=== PATIENT | female | born 1945 | race Caucasian/White ===

== ENCOUNTER 2017-03-29 12:52 | Inpatient (IN) | payer OTHER ==
[~2017-03-29] VITALS: Ht 147.3 cm; Wt 504.9 kg
--- NOTE | 2017-03-29 13:00 | NUR ---
TERRIE FROM [facility] AND INPATIENT ADMISSION FOR MED ADJUSTMENTS. PT WEANED HERSELF OFF XANAX WITHOUT PHYSICIAN ASSISTANCE, LAST DOSE LAST WEEK. PT REPORTS TAKING XANAX FOR SEVERE ANXIETY FOR YEARS. AT CARE, STAFF WAS CONCERNED ABOUT SEVERE SHAKING AND TREMULOUS ACTIVITY AND ACTIVATED EMS. ARRIVES ANXIOUS, PLEASANT AND MOTIVATED FOR CARE. PT WAS EXPLAINED COURSE OF TREATMENT AND MEDICAL CLEARANCE FOR CRISIS ASSESSMENT AND EVAL FOR ADMISSION TO INPATIENT PSYCH. DENIES SI/HI AND DENIES AH/VH. DENIES ETOH/DRUG USE. HX HYPOTHYROID, SOCORRO, DEPRESSION. ENDORSES ANHEDONIA AND MANY PSYCHOSOCIAL STRESSORS. CONTRACTS FOR SAFETY IN HOSPITAL. OFFERS NO PHYSICAL COMPLAINTS AND REPORTS IMPROVEMENT IN ANXIETY AND SHAKINESS AFTER SPEAKING WITH THIS RN.
--- NOTE | 2017-03-29 13:29 | NUR ---
LABS DRAWN AND SENT BY THIS [facility] BLUE, SST, LAV, PINK, RICHARD
[2017-03-29 13:33] LABS: ABSOLUTE BASOPHIL COUNT 0 /CUMM (0.0-0.2); ABSOLUTE EOSINOPHIL COUNT 0 /CUMM (0.0-0.7); ABSOLUTE GRANULOCYTE CT 6.7 /CUMM (1.4-6.5); ABSOLUTE LYMPH COUNT 1.9 /CUMM (1.2-3.4); ABSOLUTE MONOCYTE COUNT 0.6 /CUMM (0.10-0.60); BASOPHIL % 0.4 % (0.0-2.0); EOSINOPHIL % 0.2 % (0-5); HEMATOCRIT 46.4 % (37-47); MEAN CORPUSCULAR HGB 32.3 PG (27.0-31.0); MEAN CORPUSCULAR VOLUME 98.1 FL (81.0-99.0); MEAN PLATELET VOLUME 7.7 FL (7.4-10.4); PLATELET COUNT 145 /CUMM (130-400); RBC DISTRIBUTION WIDTH 12.9 % (11.5-14.5); RED BLOOD CELL CT 4.73 /CUMM (4.20-5.40); WHITE BLOOD CELL COUNT 9.3 /CUMM (4.8-10.8)
--- NOTE | 2017-03-29 13:50 | NUR ---
TWO BELONGINGS BAGS TO CLOSET, ONE VALUABLES TO SAFE, AND ONE BAG TO PHARMACY. INFORMED WAITING PERFORMED
--- NOTE | 2017-03-29 14:24 | ED PSYCHIATRIC COMPLAINT ---
History of Present Illness General Chief Complaint: General Adult Stated Complaint: BIBA Source: patient Exam Limitations: no limitations Vital Signs & Intake/Output Vital Signs & Intake/Output Vital Signs Date Time Temp Pulse Resp B/P B/P Pulse O2 O2 Flow FiO2 Mean Ox Delivery Rate 04/02 0749 96.2 92 136/87 04/01 2009 99.2 82 16 101/61 04/01 2004 99.2 82 101/61 04/01 1618 77 105/64 04/01 1615 77 105/64 04/01 1224 92 129/76 04/01 1221 92 129/76 Allergies Coded Allergies: citalopram (From CELEXA) (UNKNOWN PER PT 03/29/17) fluvoxamine (From LUVOX) (UNKNOWN PER PT 03/29/17) sertraline (From ZOLOFT) (UNKNOWN PER PT 03/29/17) Triage Note: BIBA FROM [facility] AND INPATIENT ADMISSION FOR MED ADJUSTMENTS. PT WEANED HERSELF OFF XANAX WITHOUT PHYSICIAN ASSISTANCE, LAST DOSE LAST WEEK. PT REPORTS TAKING XANAX FOR SEVERE ANXIETY FOR YEARS. AT [facility], STAFF WAS CONCERNED ABOUT SEVERE SHAKING AND TREMULOUS ACTIVITY AND ACTIVATED EMS. ARRIVES ANXIOUS, PLEASANT AND MOTIVATED FOR CARE. PT WAS EXPLAINED COURSE OF TREATMENT AND MEDICAL CLEARANCE FOR CRISIS ASSESSMENT AND EVAL FOR ADMISSION TO INPATIENT PSYCH. DENIES SI/HI AND DENIES AH/VH. DENIES ETOH/DRUG USE. HX HYPOTHYROID, SOCORRO, DEPRESSION. ENDORSES ANHEDONIA AND MANY PSYCHOSOCIAL STRESSORS. CONTRACTS FOR SAFETY IN HOSPITAL. OFFERS NO PHYSICAL COMPLAINTS AND REPORTS IMPROVEMENT IN ANXIETY AND SHAKINESS AFTER SPEAKING WITH THIS RN. Triage Nurses Notes Reviewed? yes Onset: Gradual Duration: worse persistent since (2 weeks) Timing: recent history Severity: moderate Severity Numbers: 8 Associated Symptoms: anxiety, impaired concentration HPI: Patient is a 71-year-old female presenting to the emergency department with chief complaint of increasing depression, anxiety worsening over the past couple weeks. History of being medicated with mood stabilizers, not currently on an antidepressant. She was told to come in by [facility] for evaluation because she recently titrated herself off of Xanax. Since then she's had increasing and feelings of anxiety and depression. She also reports worsening of her central tremor which she has had for the past 20 years. Denies any nausea or vomiting. No palpitations. Denies weakness. Denies any suicidal or homicidal ideation. (DENA WALKER) Reconcile Medications Diphenhydramine HCl 50 MG CAPSULE 1 CAP PO AD UNKNOWN (Reported) Divalproex Sodium (Divalproex Sodium ER) 250 MG TAB.ER.24H 1 TAB PO QPM MOOD STABILIZER (Reported) Divalproex Sodium 500 MG TABLET.DR 1 TAB PO QPM MOOD STABILIZER (Reported) Levothyroxine Sodium 50 MCG TABLET 1 TAB PO DAILY THYROID (Reported) Multivitamin (Multi-Day Vitamins) 1 EACH TABLET 1 TAB PO DAILY SUPPLEMENT ( Reported) [place]-3 Fatty Acids ([place]-3) (Unknown Strength) CAPSULE 2 CAP PO DAILY SUPPLEMENT (Reported) Quetiapine Fumarate 25 MG TABLET 2 TAB PO QHS MENTAL HEALTH (Reported) Topiramate 50 MG TABLET 1 TAB PO QHS MOOD (Reported) (NOHELIA LAST,DEANDRE Kam) Past History Travel History Traveled to [place] past 21 day No Medical History Any Pertinent Medical History? see below for history Neurological: NONE EENT: NONE Cardiovascular: NONE Respiratory: NONE Gastrointestinal: NONE Hepatic: NONE Renal: NONE Musculoskeletal: NONE Psychiatric: anxiety, depression Endocrine: hypothyroidism Blood Disorders: NONE Cancer(s): NONE Surgical History Surgical History: non-contributory Psychosocial History What is your primary language Danish Tobacco Use: Never used Family History Hx Contributory? No (DENA WALKER) Review of Systems Review of Systems Constitutional: Reports: no symptoms. Comments Review of systems: See HPI, All other systems negative. Constitutional, no chills fever or weight loss HEENT: No visual changes no sore throat no congestion Cardiovascular: No chest pain ,palpitation , orthopnea or ankle swelling Skin, no jaundice no rashes Respiratory: No dyspnea cough sputum or hemoptysis GI: No nausea no vomiting : No dysuria No hematuria Muscle skeletal: no back pain, no neck pain, Neurologic: No numbness no confusion Psych: Positive anxiety and depression Heme/endocrine: No bruising no bleeding no polyuria or polydipsia Immunology: No splenectomy or history of AIDS (DENA WALKER) Physical Exam Physical Exam General Appearance: well developed/nourished, no apparent distress, alert, awake , comfortable Neurological/Psychiatric: anxious Comments: Well-developed well-nourished person in no acute distress HEENT: Normal EENT exam, extraocular motion intact, no nystagmus. Pupils equally round and reactive to light and accommodation. Nose is atraumatic. External auditory canal and Tympanic membranes clear. Pharynx normal. No swelling or edema. Neck: Normal inspection Back: Nontender Cardiovascular: Regular rate and rhythms no murmurs rubs or gallops, normal JVP Respiratory: Chest nontender. No respiratory distress.breath sounds clear to auscultation bilaterally Extremity: No edema Neuro: Alert oriented x3, essential tremor present in face and left hand Skin: No appreciable rash on exposed skin, skin is warm and dry. Psych: Anxious memory and judgment is normal. SAD PERSONS Done? patient not suicidal (DENA WALKER) Progress Differential Diagnosis: medication withdrawal, medication side effect, depressive disorder, generalized anxiety disorder Plan of Care: Current Medications Sig/Prasanth Start time Last Medication Dose Stop Time Status Admin Quetiapine Fumarate 25 MG Q4H PRN 04/01 2315 AC (Seroquel) Lorazepam 0.5 MG 0800,1400,04/01 0800 AC 04/01 (Ativan) 04/08 0759 1949 Divalproex Sodium 750 MG 03/31 AC 04/01 (Depakote ER) 1949 Lorazepam 0.5 MG Q4H PRN 03/31 1130 AC 03/31 (Ativan) 04/07 1129 1812 Lorazepam 1 MG Q4H PRN 03/31 1130 AC (Ativan) Quetiapine Fumarate 50 MG AT BEDTIME 03/30 2200 AC 04/01 (SEROquel) 2145 Topiramate 50 MG AT BEDTIME 03/30 2200 AC 04/01 (Topamax) 2145 Glycerin 2 SPRAY Q2P PRN 03/30 1015 AC 04/01 ([facility] [address] [place]) Multivitamins 1 TAB DAILY 03/30 1000 AC 04/01 Therapeutic 1126 (Theragran-M Vitamins Tabs) Levothyroxine Sodium 0.05 MG DAILY AC 03/30 0700 AC 04/01 (Synthroid) 1126 Microbiology 04/01 1336 URINE ROUT: Urine Culture - RECD Hand-Off Endorsed To: DEANDRE POZO MD Endorsed Time: 1999 Pending: consult Comments: Patient will be signed out to Dr. Pozo pending consultation with psychiatry. (DENA WALKER) Departure Departure Disposition: STILL A PATIENT Condition: Stable Referrals: UNKNOWN (PCP/Family) Departure Forms: Customer Survey General Discharge Information (DENA WALKER) Departure Clinical Impression Primary Impression: Major depressive disorder, recurrent, unspecified Psych Admission Note Psychiatric Admission: I have seen and evaluated HUSSEIN MA. I have also reviewed all the pertinent lab results and diagnostic results. HUSSEIN MA will be admitted to our inpatient Psychiatric unit for treatment and care. PA/PROGRAM RESEARCH SPECIALIST Co-Sign Statement Statement: ED Attending supervision documentation- [X] I saw and evaluated the patient. I have also reviewed all the pertinent lab results and diagnostic results. I agree with the findings and the plan of care as documented in the PA's/PROGRAM RESEARCH SPECIALIST's documentation. [X] I have reviewed the ED Record and agree with the PA's/PROGRAM RESEARCH SPECIALIST's documentation. [] Additions or exceptions (if any) to the PAs/PROGRAM RESEARCH SPECIALIST's note and plan are summarized below: [] (NOHELIA LAST,DEANDRE Kam) Departure Clinical Impression Primary Impression: Major depressive disorder, recurrent, unspecified Psych Admission Note Psychiatric Admission: I have seen and evaluated HUSSEIN MA. I have also reviewed all the pertinent lab results and diagnostic results. HUSSEIN MA will be admitted to our inpatient Psychiatric unit for treatment and care. PA/PROGRAM RESEARCH SPECIALIST Co-Sign Statement Statement: ED Attending supervision documentation- [X] I saw and evaluated the patient. I have also reviewed all the pertinent lab results and diagnostic results. I agree with the findings and the plan of care as documented in the PA's/PROGRAM RESEARCH SPECIALIST's documentation. [X] I have reviewed the ED Record and agree with the PA's/PROGRAM RESEARCH SPECIALIST's documentation. [] Additions or exceptions (if any) to the PAs/PROGRAM RESEARCH SPECIALIST's note and plan are summarized below: [] (NOHELIA LAST,DEANDRE Kam)
--- NOTE | 2017-03-29 14:31 | NUR ---
PRABHAKAR HURST AT BEDSIDE FOR EVAL
--- NOTE | 2017-03-29 14:35 | NUR ---
PCP BLADIMIR HENLEY APRN AT [facility] CONTACT [phone]
--- NOTE | 2017-03-29 14:40 | NUR ---
FOOD TRAY ORDERED
--- NOTE | 2017-03-29 15:04 | NUR ---
RECEIVE REPORT FROM ROHAN ALARCON
[2017-03-29] MEDS ORDERED: LEVOTHYROXINE50 MCG PO (15:42)
[2017-03-29] MEDS ORDERED: QUETIAPINE FUMA25 M1 PO (15:42)
[2017-03-29] MEDS ORDERED: DIVALPROEX SOD250 M3 PO (15:42)
[2017-03-29] MEDS ORDERED: TOPIRAMATE50 M1 PO (15:43)
[2017-03-29] MEDS ORDERED: DIVALPROEX SOD500 M2 PO (15:43)
[2017-03-29] MEDS ORDERED: ALPRAZOLAM2 M2 PO (15:44)
[2017-03-29] MEDS ORDERED: DIPHENHYDRAMINE50 M1 PO (15:44)
[2017-03-29] MEDS ORDERED: MULTI-DAY VITA1 EACH PO (15:51)
[2017-03-29] MEDS ORDERED: SUPER B-50 COM1 EACH PO (15:51)
[2017-03-29] MEDS ORDERED: CALCIUM-MAGNES1 EAC5 PO (15:52)
--- NOTE | 2017-03-29 15:52 | ED PSY CRISIS COLLATERAL NOTE ---
Collateral Note Collateral Note Family/Inform/Davis Contacts: Per Cady Alonzo's email: "I am meeting with Vicky Galvez as part of an OPS medication evaluation. Briefly , she is a 71 year old female with Bipolar Disorder living alone in an independent retirement community. She reports worsened anxiety and depressive symptoms affecting her ability to care for herself and feel safe. She had also recently self-tapered off Xanax 2mg. Reports passive suicidal ideation, denies intent or plan. She has been psychiatrically on four prior occasions (last hospitalization in 2009). I am recommending that she be evaluated at Crisis for possible inpatient psychiatric hospitalization. Cady Alonzo APRN, PMHNP-[facility], [place] [phone]"
[2017-03-29] MEDS ORDERED: OMEGA-31000 M1 PO (15:53)
--- NOTE | 2017-03-29 15:59 | NUR ---
AMBULATES IN [place] W/ ASSIST. REMAINS A/O. PLEASANT AND COOPERATIVE.
--- NOTE | 2017-03-29 16:05 | ED PSY CRISIS COLLATERAL NOTE ---
Collateral Note Collateral Note Family/Inform/Davis Contacts: Cady Alonzo VISION IMPAIRED TEACHER: Cady called crisis to give pt information being sent to ED by ambulance. Pt is 71 yo female with hx of bipolar d/o who came in(OPS) for medication evaluation. She presents with increase in anxiety, visible tremor of hands, and endorses passive SI. Pt decided to taper herself off of xanax. She has hx of MH since early 1970's and has had multiple medication trials. No hx of suicide attempts. Pt is noted to have decrease in neuro-veg symptoms ie eating, motivation, interests. Pt is seeking voluntary inpatient admission for mood stabilization, safety and stable medication regime. Pt has hx of 4 hospitalizations inpatient hospitalizations between [id number] Inpatient - [facility] in 2009 Inpatient - [facility] in 2005 Inpatient - [facility] in 2000 Inpatient - [facility] in 2000, for nervous break down Outpatient - Dr. All Brunner, psychologist, [place] - currently working with Dates: Since 1997 to present, (phone [phone], fax [phone]) Outpatient - Amrita Patel APRN, prescriber. Recently stopped going and PCP took over prescriptions. Outpatient: IOP at [place] in 2002 Outpatient - Dr. Brady Porras, prior psychiatrist. Current Psychiatric Medications: quetiapine 50mg bedtime depakote ER 750mg daily bedtime topamax 50mg daily bedtime Other Medications: levothyroxine 0.05mg daily AM, benadryl 100mg bedtime (took 1st dose last night),
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
--- NOTE | 2017-03-30 04:04 | NUR ---
AWAKE SEVERAL TIMES DURING THE SHIFT BENADRYL GIVEN . THEN WANTING PRUNE JUICE ADMINISTERED WITH GOOD RELIEF.
[2017-03-30 07:52] VITALS: BP 112/63
--- NOTE | 2017-03-30 11:22 | SOCIAL WORKER PROG NOTE PSYCH ---
Social Work Progress Note Progress Note Recieved call from [facility] Clemente Sims - she stated she needed more clinical regarding patient to authorize admission. Provided clinical and AUTH [id number] (03/29/17-), next review on 04/04/17. She stated she'd like to know about her psychiatric admissions from the past, reason for admissions. Also, family meeting, and collateral regarding Xanex and how much was she taking.
[2017-03-30 12:21] VITALS: BP 114/59
--- NOTE | 2017-03-30 13:25 | SOCIAL WORKER PROG NOTE PSYCH ---
Social Work Progress Note Progress Note 11:30am: Vasu met with patient. Pt presented as depressed, tearful and anxious. She reported having SI without plan and expressed not wanting to live. "My Yarsanism is my protective factor against suicide." Pt reported having limited supports and discussed past services/supports she utilized such as [facility] in [place]. Pt was encouraged to utilize the staff/nursing at [facility] for support as needed. She agreed to inform staff should safety concerns or other concerns arise. Pt stated that she would be interested in meeting with the hospital meter reader. Sw followed up with nursing staff who had submitted a request.
--- NOTE | 2017-03-30 14:20 | NUR ---
PT HAS BEEN VISIBLE IN THE [place]IE[place] MOST OF THE DAY. HER GOAL WAS TO TRY AND BE POSITIVE. PT HAS BEEN MOST GROUPS TODAY, AND HAS BEEN INTERACTING WITH PEERS. SHE IS HYPERVERBAL AT TIMES, AND FEELING ANXIOUS BUT WAS COMFORTED BY CHARGE NURSE. PT SEEMS TO BE MAKING SOME ADJUSTMENTS IN THE MILIEU. WHEN ASKED PT DENIES THOUGHTS TO HURT HERSELF BUT SEES HERSELF GOING IN THREE DAYS. SHE DID SAY THAT SHE WILL NOT HURT HERSELF, AND WILL REMAIN SAFE.
[2017-03-30 15:48] VITALS: BP 114/66
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
--- NOTE | 2017-03-30 18:08 | NUR ---
PT IS COOPERATIVE WITH STAFF AND PEERS, AND COMPLIANT WITH UNIT RULES. OFTEN IN MILIEU, INTERACTING WELL WITH OTHERS. PT CAN APPEAR LABILE AND TEARFUL AT TIMES. MOOD IS STABLE, AFFECT APPEARS EUTHYMIC TO FULL RANGE, COMMUNICATION IS ORGANIZED, BUT CAN BE HYPERVERBAL AT TIMES, OTHER THAN THAT IS NORMAL IN ALL RESPECTS, AND APPETITE IS NORMAL. PT DENIES SI AT THIS TIME.
--- NOTE | 2017-03-30 19:20 | History & Physical ---
General Information and HPI MD Statement: I have seen and personally examined HUSSEIN MA and documented this H&P. The patient is a 71 year old F who presented with a patient stated chief complaint of "Severe and worsening depression and possible taper off Xanax wrong "]. Source of Information: patient Exam Limitations: no limitations History of Present Illness: 71 year old female BIBA from clinic for tremors and inpatient admission for medication adjustment. Patient weaned herself off Xanax without physician assistance,last dose last week she was taking the medication for severe anxiety for years. Also depressed crying "There is nothing worth living for".Not happy living at senior housing. for all this reasons admitted. Allergies/Medications Allergies: Coded Allergies: citalopram (From CELEXA) (UNKNOWN PER PT 03/29/17) fluvoxamine (From LUVOX) (UNKNOWN PER PT 03/29/17) sertraline (From ZOLOFT) (UNKNOWN PER PT 03/29/17) Home Med list Diphenhydramine HCl 50 MG CAPSULE 1 CAP PO AD UNKNOWN (Reported) Divalproex Sodium (Divalproex Sodium ER) 250 MG TAB.ER.24H 1 TAB PO QPM MOOD STABILIZER (Reported) Divalproex Sodium 500 MG TABLET.DR 1 TAB PO QPM MOOD STABILIZER (Reported) Levothyroxine Sodium 50 MCG TABLET 1 TAB PO DAILY THYROID (Reported) Multivitamin (Multi-Day Vitamins) 1 EACH TABLET 1 TAB PO DAILY SUPPLEMENT ( Reported) [place]-3 Fatty Acids ([place]-3) (Unknown Strength) CAPSULE 2 CAP PO DAILY SUPPLEMENT (Reported) Quetiapine Fumarate 25 MG TABLET 2 TAB PO QHS MENTAL HEALTH (Reported) Topiramate 50 MG TABLET 1 TAB PO QHS MOOD (Reported) Compliance With Home Meds: UNKNOWN Past History Travel History Traveled to [place] past 21 day No Medical History Neurological: NONE EENT: NONE Cardiovascular: NONE Respiratory: NONE Gastrointestinal: NONE Hepatic: NONE Renal: NONE Musculoskeletal: NONE Psychiatric: anxiety, depression Endocrine: hypothyroidism Blood Disorders: NONE Cancer(s): NONE Isolation History: Standard Surgical History Surgical History: non-contributory Past Family/Social History Employment History Employment Employed Profession/Employer Homemaker and cleaning Review of Systems Review of Systems Constitutional: Reports: see HPI. Exam & Diagnostic Data Last 24 Hrs of Vital Signs/I&O Vital Signs Date Time Temp Pulse Resp B/P B/P Pulse O2 O2 Flow FiO2 Mean Ox Delivery Rate 03/30 1548 70 114/66 03/30 1221 70 114/59 03/30 0752 98.9 68 112/63 03/29 1922 98.5 84 19 137/65 96 Room Air Intake & Output 03/30 1600 03/30 0800 03/30 0000 Intake Total Output Total Balance Patient 120 lb Weight Physical Exam General Appearance Alert, Oriented X3, Cooperative, shacky Skin No Rashes, No Breakdown HEENT PERRLA, EOMI Neck Supple, No JVD Lymphatic Axillary nl, Cervical nl Cardiovascular Regular Rate, No Murmurs Lungs Clear to Auscultation, Normal Air Movement Abdomen Soft, No Tenderness, No Hepatospenomegaly Neurological Exam Findings: Normal Tone, Sensation Intact, Cranial Nerves 3-12 NL, tremors Cranial Nerves II through XII: Intact Extremities No Edema, Normal Pulses Last 24 Hrs of Labs/Boo: Laboratory Tests 03/29/17 1327: Anion Gap 14, Estimated GFR > 60, BUN/Creatinine Ratio 22.5, Glucose 78, Calcium 9.9, Total Bilirubin 0.6, AST 46 H, ALT 37, Alkaline Phosphatase 68, Total Protein 7.3, Albumin 4.4, Globulin 2.9, Albumin/Globulin Ratio 1.5, Triglycerides 116, Cholesterol 210 H, LDL Cholesterol, Calc 125, HDL Cholesterol 62 H, Cholesterol/HDL Ratio 3, TSH 2.200, Free T4 1.32, CBC w Diff NO MAN DIFF REQ, RBC 4.73, MCV 98.1, MCH 32.3 H, RDW 12.9, MPV 7.7, Gran % 72.0 , Lymphocytes % 20.7, Monocytes % 6.7, Eosinophils % 0.2, Basophils % 0.4, Absolute Granulocytes 6.7 H, Absolute Lymphocytes 1.9, Absolute Monocytes 0.6, Absolute Eosinophils 0, Absolute Basophils 0, PUBS MCHC 33.0, Serum Alcohol < 10.0 03/29/17 1313: Urine Opiates Screen < 100.00, Methadone Screen 52, Barbiturate Screen < 60, Ur Phencyclidine Scrn < 6.00, Amphetamines Screen < 100, U Benzodiazepines Scrn 504 H, Urine Cocaine Screen < 50, Urine Cannabis Screen < 5.00, Urinalysis MOD H, Urine Color YEL, Urine Clarity HAZY H, Urine pH 6.5, Ur Specific [place] 1.025, Urine Protein TRACE H, Urine Ketones NEG, Urine Nitrite NEG, Urine Bilirubin NEG, Urine Urobilinogen 0.2, Ur Leukocyte Esterase TRACE H, Ur Microscopic SEDIMENT EXAMINED, Urine RBC 1-3, Urine WBC 1-3 H, Ur Epithelial Cells FEW, Urine Bacteria FEW H, Hyaline Casts FEW H, Urine Mucus MANY H, Urine Hemoglobin NEG, Urine Glucose NEG Assessment/Plan As Ranked By This Provider Problem List: 1. Major depressive disorder, recurrent, unspecified 2. Tremors of nervous system Miscellaneous Miscellaneous Documentation Attending Case Discussed With: NADIRA LAST,ARMIN Perkins Primary Care Physician: UNKNOWN Patient sees these Specialists psych Level of Patient Care: Bal Consults Needed: Consulting Specialty: Psychiatry Consulting Physician: Dr pabon Reason for Consult: depression anxiety,
[2017-03-30 19:55] VITALS: BP 93/53
--- NOTE | 2017-03-31 07:09 | NUR ---
PT DISORGANIZED. PT RECEIVED BENADRYL 50 PRN AT 2300 WITH MINIMAL EFFECT INITIALLY. PT TALKING LOUDLY TO HERSELF AT SEVERAL POINTS IN THE NIGHT. PT DID SLEEP BETTER AFTER 0245, BUT STILL BIZARRE AND DIFFICULT TO UNDERSTAND IN THE AM.
[2017-03-31 08:05] VITALS: BP 130/86
--- NOTE | 2017-03-31 10:41 | NUR ---
PT IS COOPERATIVE WITH STAFF AND PEERS, AND COMPLIANT WITH UNIT RULES. APPEARS HIGHLY ANXIOUS, AND HYPERACTIVE. OFTEN IN MILIEU, INTERACTING WITH OTHERS. MOOD IS STBALE, AFFECT APPEARS EUTHYMIC, ANXIOUS AT TIMES. COMMUNICATION IS ORGANIZED, BUT HYPERVERBAL AND PRESSURED. APPETITE IS NORMAL. PT DENIES SI AT THIS TIME.
[2017-03-31 12:42] VITALS: BP 126/71
--- NOTE | 2017-03-31 14:08 | CP SOUTH PROGRESS NOTE PSYCH ---
Psych (Inpt) Progress Note Progress Note Include the following elements, when applicable: Involvement in the active treatment of the patient with behavioral observations of the patient and the patient's response to the treatment. Review of the ongoing treatment process in the context of the treatment plan. Indication of how multi-disciplinary staff members are carrying out the treatment plan. Plans for future interventions and recommendations for revision of the treatment plan. Liaison with other physicians/providers. Progress Note: PSYCHIATRIST NOTE, 03/31/2017: I discussed this patient's progress thus far, current mental status, treatment and discharge planning with staff team today in the daily morning LULU and Darlin Boudreaux LCSW, our medical student, Randee TRIVEDI, and I interviewed her together in individual session. Overnight report noted difficulty sleeping without benefit from PRN Benadryl, 50mg. Patient was highly disorganized, talking loudly to herself much of the night, still bizarre and difficult to understand in AM. During our meeting today, patient's problem making herself understood continued despite what appeared to be considerable effort on her part to communicate with us and be understood, a clearly social interaction though much if not most of it obscure. She was extremely shaky, tremulous, with arms flailing about in seeming effort to reinforce and emphatize what she was trying to say/convey. Much of the time, she spoke incoherently in a manner which almost suggested some sort of aphasia but at intervals she was able to get her point across and what she was saying at those times appeared to be generally nondelusional if not completely linear and rational. Despite all her difficulties at communicating, and some lability and teariness at times, patient's affect/mood overall seemed rather expansive, not sustainedly sad or dysphoric and she frequently smiled and appeared enthusiastic; though obviously also frustrated, she did not seem dismayed or depressed over her difficulties and kept trying to be understood with effort and energy. My quess was that her current presentation is very much contributed to by her recent abrupt self- discontinuation of Xanax after many years of constant use; I went over with patient the protocol of tapering regular doses of Ativan, plus additional PRN's for significant elevations in CIWA/pulse over the next several days and that we will be monitoring and re-evaluating the process and its efficacy on a daily basis. She reported an essential tremor since "age 49" with some progression and exacerbation during times of high emotion (such as now) but denied being followed or treated by a neurologist and was eager to have a neurologic consultation during this admission. There may also be a component of Tardive Dyskinesia from years of neuroleptic treatment of her bipolar disorder which is adding to her currently observed movements. Patient characterized her "bipolar " as most often being pressured in speech/hyperactive and going on spending sprees. Patient claims to be unhappy where she lives in senior housing, "not liking to be around old people;" she does have a male neighbor Trent who she said recently proposed marriage to her but emphasized "I'm not interested in him that way; he's too old for me; I like younger men," and added to this that she did want very much to "find out what 'fun' is...what 'fun' is for me..." We have scheduled an initial inpatient serum valproic acid level for tomorrow morning.
[2017-03-31 15:36] VITALS: BP 91/57
--- NOTE | 2017-03-31 16:10 | SOCIAL WORKER PROG NOTE PSYCH ---
Social Work Progress Note Progress Note 3:55pm: Vasu left vm for Renita at [facility] with clinical, requesting additional units for inpt admission.
[2017-03-31 18:07] VITALS: BP 131/74
--- NOTE | 2017-03-31 18:08 | SOCIAL WORKER PROG NOTE PSYCH ---
Social Work Progress Note Progress Note 12:05pm: Emely Walton, medical student and this SW met with pt. She presented as tearful and disorganized, however, became more organized in thought as the session progressed. Pt discussed her decision to taper off the Xanax, however struggled with the side effects/withdrawal sx of doing so. She was in agreement in following orders regarding this taper. Regarding medical, pt reported that her tremors began at age 49 and worsen with agitation and excitement. Furthermore, they impact her speech. She denied ever seeing a neurologist and was eager to do so. Pt discussed her experience with Bipolar disorder and discussed hypomanic episodes as related to "over spending and over talking." Pt stated that while she does not enjoy living in a fpc environment, she did identify a friend/support that she has there. Pt identified [facility] primary [facility] as tapering off the BZD and "I have to learn more about what fun is for me."
[2017-03-31 20:11] VITALS: BP 99/65
[2017-03-31 20:15] VITALS: BP 99/65
--- NOTE | 2017-03-31 20:50 | NUR ---
PT IS VISIBLE ON UNIT, PRESENTING DISORGANIZED AND DISORIENTED. PT IS SEEN WANDERING AROUND UNIT, GOING BEHIND NURSE'S STATION AND INTO OTHER PATIENT'S ROOM. PT RESISTS REDIRECTION BUT TYPICALLY WILL COMPLY. PT IS TANGENTIAL, HYPERVERBAL AND NONSENSICAL. AT TIMES PT IS TEARFUL BUT HAS A DIFFICULT TIME EXPRESSING WHAT IS WRONG AND EXPESSES FRUSTRATION WHEN STAFF CANNOT UNDERSTAND. NO SI REPORTED. PT HAS AN ANXIOUS MOOD AND LABILE AFFECT.
--- NOTE | 2017-03-31 21:47 | NUR ---
MOVED PT. TO B1 TO BE CLOSER TO NURSES STATION PT. WANDERING INTO OTHER ROOMS VERY RESTLESS. 2030 RECEIVED CALL FROM PT'S. PSYCHIATRIST PT. HAD CALLED HIM HE WAS QUITE CONCERNED OF HER CONFUSION " I HAVE TAKEN CARE OF HER FOR 10YRS. THIS IS NOT HER NORMAL BEHAVIOR " GAVE THIS NURSE HIS CELL NUMBER TO BE NOTIFIED FOR ANYTHING CONCERNING HER CARE. GAVE NUMBER TO DR. WADDELL AND MADE AWARE OF HER CONFUSION. [id number] WANG OF TEMP 99.2 CONFUSION ORDERED URINE CULTURE AND 1:1 SITTER. PT IS REDIRECTABLE LABS ARE ORDERED FOR AM. ALSO HAS NOT SLEPT THE LAST [address] WANG WOULD LIKE US TO TRY TO STAY AWAY FROM MEDICATING WITH ATIVAN IF POSSIBLE.
--- NOTE | 2017-03-31 23:48 | NUR ---
[address] WANG NOTIFIED ORDERED TRAZADONE 50MG PO IF INEEFECTIVE GIVE ZYPREXA.
--- NOTE | 2017-04-01 00:56 | NUR ---
12AM PT. SLEEPING SOUNDLY.
[2017-04-01 12:21] VITALS: BP 129/76
[2017-04-01 12:24] VITALS: BP 129/76
--- NOTE | 2017-04-01 13:10 | NUR ---
PT HAS BEEN IN HER ROOM ASLEEP FOR MOST OF THE MORNING AND EARLY AFTERNOON. RECIEVED A PRN AND NURSE REQUESTED VITALS FOR PT. PT WAS THEN GIVEN THE OPTION TO COME OUT INTO THE COMMUNITY TO HAVE HER VITALS TAKEN OR TO STAY IN BED. SHE CHOSE TO COME OUT INTO THE [facility] AND DISPLAYED DISORGANIZED SPEECH, ANXIETY, HIGH PULSE AND TREMORS. PEERS BEGAN TO SOCIALIZE WITH HER AND SHE APPEARED DISTRACTED FROM EXPRESSING DISTRESS. WHEN ASKED PT HAS DENIED ANY THOUGHTS OF SI AND WILL INFORM STAFF IF THOUGHTS/FEELINGS CHANGE.
--- NOTE | 2017-04-01 15:49 | SOCIAL WORKER PROG NOTE PSYCH ---
Social Work Progress Note Progress Note Lemgthy conversation with Cheyenne ("you can call me Cheyenne"), and she provided background information, as well as her standard for this admission to be a complete success would be for her to get involved in more activities; and for her to get a different living situation, even if it is is essentially in the same neighborhood. Patient provided rich information
[2017-04-01 16:15] VITALS: BP 105/64
[2017-04-01 16:18] VITALS: BP 105/64
--- NOTE | 2017-04-01 18:06 | NUR ---
PT IS CALM, COOPERATIVE WITH STAFF AND PEERS, AND COMPLIANT WITH UNIT RULES. BOTH IN AND OUT OF MILIEU, INTERACTING WITH OTHERS TO AN EXTENT. APPEARS CONFUSED AT TIMES. PACING THE UNIT WHILE IN MILIEU ON OCCASSION. MOOD IS STABLE, AFFECT APPEARS EUTHYMIC, COMMUNICATION IS ORGANIZED TO AN EXTENT, SLIGHTLY HYPERVERBAL, AND APPETITE IS NORMAL. PT DENIES SI AT THIS TIME.
--- NOTE | 2017-04-01 18:18 | SOCIAL WORKER PROG NOTE PSYCH ---
Social Work Progress Note Progress Note Authorization for continued inpt treatment: Auth number: [id number] 04/01-04/06/17 review on 04/06/17 with Renita [phone]
--- NOTE | 2017-04-01 18:58 | CP SOUTH PROGRESS NOTE PSYCH ---
Psych (Inpt) Progress Note Progress Note Include the following elements, when applicable: Involvement in the active treatment of the patient with behavioral observations of the patient and the patient's response to the treatment. Review of the ongoing treatment process in the context of the treatment plan. Indication of how multi-disciplinary staff members are carrying out the treatment plan. Plans for future interventions and recommendations for revision of the treatment plan. Liaison with other physicians/providers. Progress Note: PSYCHIATRIST NOTE, 04/01/2017: I discussed this patient's progress to date, current mental status, treatment and discharge planning with staff team today in the daily morning ITTM and our medical student, Randee TRIVEDI, and I met with patient together in individual session. I had spoken earlier in the day with patient's longtime treating outpatient psychologist, Dr. 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 He is completely willing to have paient return to see him following stabilization. She will likely continue to see Cady Alonzo APRN, for medication management; though patient has only seen Ms. Alonzo once she has established a very strong positive transference to her (as she has for many years with Dr. Brunner). Patient was much less tremulous today, without arm flailing or much articulation difficulty and with a mental clarity asoundingly improved over our interview with her only 24 hours ago; it is like she is not the same person only she was able to better explain some of what she'd tried to convey to us yesterday. She was incisive, insightful, witty (appropriately if mildly elatedly so), obviously intelligent and educated. It is hard to describe the contrast between her previous aphasia-like, stuttering, disorganized (to the point of seeming looseness) presentation the day before. Could this be in large part due to restarting a low dose of benzodiazepine during the interval, have been generated by acute Xanax withdrawal after so many years? I will be slow to further taper current dose of Ativan, 0.5mg 3x/day, planning to continue this dose until at least 04/04/2017 before continuing taper; patient received one PRN dose of Ativan, 0.5mg last evening for elevation in CIWA score. I have discontinued PRN trazodone given possible rapid cycling bipolar disorder; in addition to Seroquel, 50mg HS, I will add 25mg PRN doses up to an additional 100mg/day maximum. Serum valproic acid level this morning was optimal at 81.5mcg/ml and Depakote continues to be well-tolerated at a dose of 750mg/day; this mood stabilizer may also be helping with the improved clinical picture; though patient continues to be a little giddy, she is clearly not hypomanic at this time. If additional mood stabilization is required despite the low dose Seroquel, a trial of Tegretol might be considered. We will stay away from primary anti-depressants; patient is not currently depressed in any event.
[2017-04-01 20:04] VITALS: BP 101/61
[2017-04-01 20:09] VITALS: BP 101/61
[2017-04-02] VITALS (7 sets, daily range): BP systolic 81–136; BP diastolic 49–87
--- NOTE | 2017-04-02 04:49 | NUR ---
PT SLEPT. LESS MANIC, LESS THOUGHT-DISORDERED.
--- NOTE | 2017-04-02 09:36 | CP SOUTH PROGRESS NOTE PSYCH ---
Psych (Inpt) Progress Note Progress Note Include the following elements, when applicable: Involvement in the active treatment of the patient with behavioral observations of the patient and the patient's response to the treatment. Review of the ongoing treatment process in the context of the treatment plan. Indication of how multi-disciplinary staff members are carrying out the treatment plan. Plans for future interventions and recommendations for revision of the treatment plan. Liaison with other physicians/providers. Progress Note: Pt reports feeling better. She is denying any current si or hi. No voices. She is more hopeful. Affect is improving, thoughts are better organized, Microbiology 04/01 1336 URINE ROUT: Urine Culture - RES Vital Signs Date Time Temp Pulse Resp B/P B/P Pulse O2 O2 Flow FiO2 Mean Ox Delivery Rate 04/02 758 96.2 92 136/87 04/02 749 96.2 92 136/87 04/01 2009 99.2 82 16 101/61 04/01 2004 99.2 82 101/61 04/01 1618 77 105/64 04/01 1615 77 105/64 04/01 1224 92 129/76 04/01 1221 92 129/76 A/P Pt seems to be improvoing Continue w current meds, Current Medications Sig/Prasanth Start time Last Medication Dose Route Stop Time Status Admin Divalproex Sodium 750 MG 03/31 AC 04/01 PO 1949 Glycerin 2 SPRAY Q2P PRN 03/30 1015 AC 04/01 PO 2147 Levothyroxine Sodium 0.05 MG DAILY AC 03/30 07 AC 04/02 PO 0759 Lorazepam 0.5 MG 0800,1400,04/01 08 AC 04/02 PO 04/08 0759 0800 Lorazepam 0.5 MG Q4H PRN 03/31 1130 AC 03/31 PO 04/07 1129 1812 Lorazepam 1 MG Q4H PRN 03/31 1130 AC PO Multivitamins 1 TAB DAILY 03/30 1000 AC 04/02 Therapeutic PO 0759 Olanzapine 2.5 MG ONCE PRN 03/31 2330 DC PO Quetiapine Fumarate 25 MG Q4H PRN 04/01 2315 AC PO Quetiapine Fumarate 50 MG AT BEDTIME 03/30 2200 AC 04/01 PO 214 Topiramate 50 MG AT BEDTIME 03/30 2200 AC 04/01 PO 214 continue to provide support and encouragement
--- NOTE | 2017-04-02 13:53 | NUR ---
NOTICABLY LESS DISORGANIZED, HYPERVERBAL REQUIRING LITTLE REDIRECTION. MOOD I STABLE, EUTHYMIC AFFECT. DENIES THOUGHTS OF SELF HARM WHEN ASKED
--- NOTE | 2017-04-02 22:22 | NUR ---
PT HAS BEEN COMPLIANT AND QUIET ON THE UNIT. SHE HAS NAPPED FOR PART OF THE SHIFT BUT WOKE UP TO EAT DINNER. SHE HAS APPEARED CONSTRICTED AND LETHARGIC WHEN HAS BEEN AWAKE WITH SLIGHT CONFUSION AT TIMES. PT HAS DENIED THOUGHTS OF SI WHEN ASKED.
[2017-04-03] VITALS (7 sets, daily range): BP systolic 95–105; BP diastolic 60–65
--- NOTE | 2017-04-03 05:50 | NUR ---
PT SLEPT. PT MORE ORGANIZED, LESS PRESSURED.
--- NOTE | 2017-04-03 10:15 | CP SOUTH PROGRESS NOTE PSYCH ---
Psych (Inpt) Progress Note Progress Note Include the following elements, when applicable: Involvement in the active treatment of the patient with behavioral observations of the patient and the patient's response to the treatment. Review of the ongoing treatment process in the context of the treatment plan. Indication of how multi-disciplinary staff members are carrying out the treatment plan. Plans for future interventions and recommendations for revision of the treatment plan. Liaison with other physicians/providers. Progress Note: I discussed this patient's progress to date, current mental status, treatment process in the context of the treatment plan, and discharge planning with staff/ team in the daily morning inpatient team meeting. I also met with the patient myself in individual session. Patient reports feeling better, calm. She is participating in groups. Affect is more reactive. Vital Signs Date Time Temp Pulse Resp B/P B/P Pulse O2 O2 Flow FiO2 Mean Ox Delivery Rate 04/03 0759 97.6 84 16 9964 04/03 0758 97.6 84 9964 04/02 2036 94.4 89 81/49 04/02 1541 84 98/56 04/02 1539 84 98/56 04/02 1220 96 105/57 04/02 1153 96 105/57 Patient is alert, oriented cooperative with the interview. Mild psychomotor retardation. Mood is described as okay affect appropriate and reactive. She is denying any suicidal or homicidal ideation. No delusions. No hallucinations. Insight and judgment improving. A/P Patient is improving Continue with current medications. Current Medications Sig/Prasanth Start time Last Medication Dose Route Stop Time Status Admin Divalproex Sodium 750 MG 03/31 PO 2005 Glycerin 2 SPRAY Q2P PRN 03/30 1015 AC 04/02 PO 2202 Levothyroxine Sodium 0.05 MG DAILY 03/30 07 AC 04/03 PO 0713 Lorazepam 0.5 MG 0800,1400,04/01 0800 04/03 PO 04/08 0759 0802 Lorazepam 0.5 MG Q4H PRN 03/31 1130 AC 03/31 PO 04/07 1129 1812 Lorazepam 1 MG Q4H PRN 03/31 1130 AC PO Multivitamins 1 TAB DAILY 03/30 1000 04/03 Therapeutic PO 0802 Quetiapine Fumarate 25 MG Q4H PRN 04/01 2315 AC PO Quetiapine Fumarate 50 MG AT BEDTIME 03/30 2200 AC 04/02 PO 2201 Topiramate 50 MG AT BEDTIME 03/30 2200 AC 04/02 PO 2201 Continue to provide support and encouragement
--- NOTE | 2017-04-03 12:41 | NUR ---
PT NOT VISIBLE MUCH IN THE [place]IEU TODAY. HER GOAL TODAY WAS TO GET THROUGH THE DAY. PT HAS BEEN IN HER ROOM MOST OF THE DAY SLEEPING IN HER ROOM. HER SPEECH IS MORE ORGANIZED TODAY THAN IT WAS A FEW DAYS AGO. PT IS COMPLIANT WITH THE RULES OF THE UNIT, AND DENIES THOUGHTS TO HURT HERSELF WHEN ASKED.
--- NOTE | 2017-04-03 21:57 | NUR ---
PT HAS NOT REPORTED ANY SIGNS OF EMOTIONAL DISTRESS AND HAS BEEN VERY QUIET ALL SHIFT. SHE HAS NOT SOCIALIZED WITH MANY PEERS OF WITH STAFF. WHEN SHE IS AWAKE SHE CAN APPEAR WITHDRAWN AND CONSTRICTED BUT HAS BEEN COMPLIANT AND OTHERWISE PLEASANT WITH NO ISSUES ON THE UNIT. PT HAS DENIED ANY THOUGHTS OF SI WHEN ASKED.
[2017-04-04] VITALS (7 sets, daily range): BP systolic 90–105; BP diastolic 49–64
--- NOTE | 2017-04-04 04:34 | NUR ---
SLEPT WELL OVERNIGHT, NO COMPLAINTS OFFERED.
--- NOTE | 2017-04-04 14:12 | NUR ---
out in community going to groups. is cooperative, less pressured, more organized. mood is stable, full rang eof affect. denies thoughts of self harm when asked
--- NOTE | 2017-04-04 15:48 | CP SOUTH PROGRESS NOTE PSYCH ---
Psych (Inpt) Progress Note Progress Note Include the following elements, when applicable: Involvement in the active treatment of the patient with behavioral observations of the patient and the patient's response to the treatment. Review of the ongoing treatment process in the context of the treatment plan. Indication of how multi-disciplinary staff members are carrying out the treatment plan. Plans for future interventions and recommendations for revision of the treatment plan. Liaison with other physicians/providers. Progress Note: PSYCHIATRIST NOTE, 04/04/2017: I discussed this patient's progress to date, current mental status, treatment and discharge planning with staff team today in the daily morning ITTM and also met with her again myself in individual session. She appears to be tolerating the limitation of Ativan dose to 0.5mg 3x/day over the immediate past weekend; I plan to reduce dose tomorrow, 04/05/2017, to 0.5mg 2x/day and completed discontinue it later this week. Patient has been eager for a neurologic consultation, claiming she has never had one previously despite suffering her tremor for over 20 years. I requested neurologic consultation for tomorrow, 04/05/2017, now that her movements related to Xanax withdrawal appear to have receded. Since patient's valproic acid level is over 80mcg/ml I also suggested that we try tapering down somewhat on the daily dose of Depakote ER, from 1,500mg to 1,000mg/day, effective with tonight's dose in effort to minimize any possible contribution to tremulousness from Depakote. Patient continues to appear more mentally sharp though today she did appear to fatigue somewhat and become less clear as the interview went on; she referred to some of the things on her mind as illusions or "dreams" that things had happened while she had been more confused and disorganized in thinking earlier; I spoke with her about asking for a PRN dose of Seroquel (25mg) if she found herself "befuddled;" she thought that word fairly well described the way she had been feeling and still does on occasion though much of her mental clarity (and sense of humor) has returned/re-emerged. I have requested another urine benzodiazepine level be drawn today, mostly to be sure that the current concentration (on Ativan, 0.5mg 3x/day) is actually less than that in the [employer] [facility] [facility] (504ng/ml). As her confusion continues to clear patient's overall mood state is improving.
--- NOTE | 2017-04-04 17:33 | SOCIAL WORKER PROG NOTE PSYCH ---
Social Work Progress Note Progress Note Completed [facility] review - check web for next review date.
--- NOTE | 2017-04-04 17:54 | NUR ---
PT IS CALM, COOPERATIVE WITH STAFF AND PEERS, AND COMPLIANT WITH UNIT RULES. OFTEN IN [place], SLIGHTLY HYPERACTIVE, PACING ABOUT UNIT AT TIMES. WHILE IN MILIEU, PT INTERACTS WELL WITH OTHERS. MOOD IS STABLE, AFFECT APPEARS EUTHYMIC, COMMUNICATION IS ORGANIZED, BUT HYPERVERBAL. APPETITE IS NORMAL. PT DENIES SI AT THIS TIME.
[2017-04-05] VITALS (8 sets, daily range): BP systolic 84–99; BP diastolic 54–73
--- NOTE | 2017-04-05 03:37 | NUR ---
SLEPT WELL OVERNIGHT.
--- NOTE | 2017-04-05 10:22 | SOCIAL WORKER PROG NOTE PSYCH ---
Social Work Progress Note Progress Note Patient ws seen individually this morning, and ahe was very friendly and appropriate. She knows that she will be seen by the neurologist at some point today, and we agreed to meet after that consult. Patient remains affable and sociable, however, she has tended to stay in room more due to difficult patient
--- NOTE | 2017-04-05 11:40 | CP SOUTH PROGRESS NOTE PSYCH ---
See Addendum Psych (Inpt) Progress Note Progress Note Include the following elements, when applicable: Involvement in the active treatment of the patient with behavioral observations of the patient and the patient's response to the treatment. Review of the ongoing treatment process in the context of the treatment plan. Indication of how multi-disciplinary staff members are carrying out the treatment plan. Plans for future interventions and recommendations for revision of the treatment plan. Liaison with other physicians/providers. Progress Note: PSYCHIATRIST NOTE, 04/05/2017: I discussed this patient's progress to date, current mental status, treatment and discharge planning with staff team today in the daily morning ITTM and met with her again myself in individual session. Repeat urine benzo. level from yesterday was less than 85ng/ml, minimal despite continuing low dose Ativan ; I will decrease dose tomorrow, 04/06/2017 and 04/07/2017 to 0.5mg/day and then discontinue benzodiazepines completely thereafter. Serum valproic acid level this morning was down to 65.8mcg/ml, still within therapeutic range on lower dose of Depakote ER (reduced from 750mg to just 500mg/day in effort to minimize possible contribution of this medication to the patient's chronic tremor). During our session today patient started off well, rational and fairly linear and coherent but then soon started deviating off the angeli, talking again about things "may have happened...or really happened" during the interval when she was most confused/delirious and probably hallucinatiing (both visual as well as verbal) and proceeded to get rather stuck on this subject despite my efforts to reorient her to the [id number]. She reported bouts of diarrhea earlier today; the only recent medication change was the addition this morning of Lexapro, 5mg; if loose stooling continues and/or her mild befuddlement persists it might be necessary to stop the Lexapro and possibly consider alternative mood therapy (? possibly Tegretol or Lamictal). Plan continues to be for transition to the IOP this week and following IOP programming medication management with Cady Alonzo APRN, and counseling with longtime sales enablement lead, Dr. Ron Brunner; he had left me a message today and patient and I tried to return his call during our meeting but had to leave a voicemail message; patient was excited that "it is Dr. Brunner's 73st birthday today."
--- NOTE | 2017-04-05 13:33 | NUR ---
PT IS COMPLIANT AND COOPEARTIVE WITH UNIT RULES. PT IS ISOATLIVE IN ROOM FOR MOST OF THE SHIFT. PT IS NOT ATTENDING GROUPS TODAY. PT MOOD IS STABLE WITH A FLAT, CONSTRICTED AFFEECT. PT SHOW NO SIGNS OF PSYCHOSIS OR PARNOID BEAHVIOR. PT DENIES SI THOUGHTS.
--- NOTE | 2017-04-05 18:29 | NUR ---
PT IS CALM, COOPERATIVE WITH STAFF AND PEERS, AND COMPLIANT WITH UNIT RULES. BOTH IN AND OUT OF MILIEU, INTERACTING WELL WITH OTHERS WHEN IN POPULATION. MOOD IS STABLE, AFFECT APPEARS EUTHYMIC TO FULL RANGE, COMMUNICATION IS ORGANIZED AND APPEARS NORMAL IN ALL RESPECTS, AND APPETITE IS NORMAL. PT DENIES SI AT THIS TIME.
[2017-04-06 07:47] VITALS: BP 95/58
[2017-04-06 08:14] VITALS: BP 95/58
--- NOTE | 2017-04-06 10:29 | SOCIAL WORKER PROG NOTE PSYCH ---
Social Work Progress Note Progress Note Patient is remaining in bed again today, and states that she does not wish to attend groups. She was somewhat irritated (but , actually, more disappointed ) that she was not seen for the neurology consult yesterday which had been the focus of her thoughts. She seems more lethargic and depressed today. Patient pretty much agreed that she was probably not one who would follow-up in IOP, but, then, later said that she would like to try IOP, and even had the plan that she could have friend who volunteered to drive her take her one way and [employer] ("who are always late ") take me the other way, "as it would not be fair for him to have to wait for me for 3 hours" Patient still complains of lonliness and states "my problem is that I don't like myself much" Patient ambivalent and I asked her to give this additional thought so that we could have a workable plan for follow up.
[2017-04-06 12:21] VITALS: BP 101/65
[2017-04-06 12:22] VITALS: BP 101/65
--- NOTE | 2017-04-06 13:04 | NUR ---
PT IS COMPLIANT AND COOPERATIVE WITH UNIT RULES. PT IS A LITTLE WITHDRAWN FROM STAFF AND PEERS, PT IS ISAOTLIVE IN ROOM FOR MOST OF THE SHIFT, RESTING AND READING IN BED. PT MOOD IS STABLE WTIH A EUTHYMIC AFFECT. PT DENIES SI THOGUHTS.
--- NOTE | 2017-04-06 15:04 | CP SOUTH PROGRESS NOTE PSYCH ---
Psych (Inpt) Progress Note Progress Note Include the following elements, when applicable: Involvement in the active treatment of the patient with behavioral observations of the patient and the patient's response to the treatment. Review of the ongoing treatment process in the context of the treatment plan. Indication of how multi-disciplinary staff members are carrying out the treatment plan. Plans for future interventions and recommendations for revision of the treatment plan. Liaison with other physicians/providers. Progress Note: Medication list reviewed. Case and treatment plan discussed in team meeting. Staff reported that CIWA scores have been low, so I discontinued CIWA. Staff reports patient has been laying low. Afraid of a male peer on the unit. Spending a lot of time in her room. Neurology consult is pending. Denying suicidal ideation. Discharge is planned for Tuesday. Patient seen at 11:02 AM. She was asleep in her room but was easily awakened. She got up and met with me in the office. States she was not fully asleep. She feels sleepy. She appears tremulous. Affect is blunted to depressed. Reports he mood is okay, much better from time of admission. Reports she had diarrhea when she started Lexapro but diarrhea has cleared. Rates sad mood 6-7/10 and anxiety 7/10. Denies feeling hopeless, worthless or guilty. She does feel helpless. Denies active suicidal ideation. Reports passive suicidal ideation. She gives a safety promise for here. Denies homicidal ideation. Denies auditory and visual hallucinations. Denies paranoid ideation. Reports sleep is fine and appetite is okay. Energy is low. IMPRESSION: Slow progress. Continue present treatment plan. Anticipate discharge on Tuesday.
[2017-04-06 15:51] VITALS: BP 87/56
--- NOTE | 2017-04-06 18:42 | NUR ---
PT IS CALM, COOPERATIVE WITH STAFF AND PEERS, AND COMPLIANT WITH UNIT RULES. OFTEN IN MILEIU, INTERACTING WELL WITH OTHERS. CAN BE SLIGHTLY WITHDRAWN AT TIMES. MOOD IS STABLE, AFFECT APPEARS EUTHYMIC TO FULL RANGE, COMMUNICATION IS ORGANIZED AND APPEARS NORMAL IN ALL RESPECTS, AND APPETITE IS NORMAL. PT DENIES SI AT THIS TIME.
[2017-04-06 19:48] VITALS: BP 106/69
--- NOTE | 2017-04-07 07:18 | NUR ---
PATIENT CALMER, QUIET, WITH ORGANIZED THOUGHTS. PT SLEPT. DEPAKOTE LEVEL DONE.
[2017-04-07 08:03] VITALS: BP 90/55
[2017-04-07 12:19] VITALS: BP 106/56
--- NOTE | 2017-04-07 13:09 | NUR ---
PT IS STABLE WITH BRIGHT, FULL RANGE OF AFFECT. PT HAS BEEN VISIBLE WITHIN THE COMMUNITY AND INTERACTING WITH PEERS/STAFF MEMBERS ALL AM SHIFT. PT HAS BEEN ATTENDING GROUPS. PT WAS ABLE TO GET HER NEUROLOGIST CONSULT THIS AFTERNOON AND WAS PLEASED TO FINALLY HAVE THIS DONE. VS ARE STABLE AND DENIES ANY SI/HI TO THIS MHW.
--- NOTE | 2017-04-07 13:19 | Cons- Neurology ---
General Information and HPI Consulting Request Date of Consult: 04/07/17 Requested By: IGGY DRAPER MD History of Present Illness: 71-year-old female with history of bipolar disorder, admitted with worsening anxiety and depression. Neurology is asked to assess for possible treatment of chronic tremor. The patient states that she has had tremor of greater than 20 years duration. It initially began in the head however has progressed to involve the upper extremities. Although it is not disabling, it is very disheartening and disturbing to the patient. She is aware that there are medications which can mitigate the tremor but in the past hesitant to employ them. She states that she has never seen a neurologist in the past for this condition. Family history is notable for similar tremor in her mother. Allergies/Medications Allergies: Coded Allergies: citalopram (From CELEXA) (UNKNOWN PER PT 03/29/17) fluvoxamine (From LUVOX) (UNKNOWN PER PT 03/29/17) sertraline (From ZOLOFT) (UNKNOWN PER PT 03/29/17) Home Med List: Diphenhydramine HCl 50 MG CAPSULE 1 CAP PO AD UNKNOWN (Reported) Divalproex Sodium (Divalproex Sodium ER) 250 MG TAB.ER.24H 1 TAB PO QPM MOOD STABILIZER (Reported) Divalproex Sodium 500 MG TABLET.DR 1 TAB PO QPM MOOD STABILIZER (Reported) Levothyroxine Sodium 50 MCG TABLET 1 TAB PO DAILY THYROID (Reported) Multivitamin (Multi-Day Vitamins) 1 EACH TABLET 1 TAB PO DAILY SUPPLEMENT ( Reported) [place]-3 Fatty Acids ([place]-3) (Unknown Strength) CAPSULE 2 CAP PO DAILY SUPPLEMENT (Reported) Quetiapine Fumarate 25 MG TABLET 2 TAB PO QHS MENTAL HEALTH (Reported) Topiramate 50 MG TABLET 1 TAB PO QHS MOOD (Reported) Review of Systems Review of Systems: Notable for anxiety, depression and chronic tremor of the head and extremities. 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 She was awake, alert and cooperative. The head was normocephalic and atraumatic however there was a titubation of the head. Pupils were equal and reactive. Extraocular movements were full. The face was symmetric. Hearing was grossly normal. Tongue was midline.Vocal tremor was evident. Motor examination showed normal tone, bulk and strength throughout. Deep tendon reflexes were symmetric. Plantar responses were flexor. There was a postural tremor of the outstretched hands as well as endpoint tremor on [id number] testing. Her gait was narrow based and steady with good arm swing. There was no festination. Assessment/Plan Assessment: Chronic familial tremor. Recommendations: The patient is now amenable to pharmacologic therapy. Although we initially discussed the possibility of propranolol, a first-line agent, her relative hypotension and history of depression may make this a less than perfect choice. Alternatively would consider Mysoline, 25 mg qhs for 1 week; 25 mg bid second week and then increase by 25 mg weekly until initial target dose of 50 mg bid. Would then follow up in office for further titration, if necessary. Please call if questions. Consult Acknowledgment - Thank you for your consult request.
--- NOTE | 2017-04-07 15:13 | CP SOUTH PROGRESS NOTE PSYCH ---
Psych (Inpt) Progress Note Progress Note Include the following elements, when applicable: Involvement in the active treatment of the patient with behavioral observations of the patient and the patient's response to the treatment. Review of the ongoing treatment process in the context of the treatment plan. Indication of how multi-disciplinary staff members are carrying out the treatment plan. Plans for future interventions and recommendations for revision of the treatment plan. Liaison with other physicians/providers. Progress Note: Case and treatment plan discussed in team meeting. Staff reports that the patient has been looking forward to neurology consult. Described as isolative. Reads in bed. Not going to groups. Patient seen at 11:10 AM. She continues to have a coarse, diffuse tremor, including head titubation. Feels okay or maybe slightly less well. Looking forward to neurology consultation. I informed the patient that Depakote level was 56.3 this morning. Rates sad mood 5/10. Rates anxiety 5/10 but the thought of going home and having to make decisions, for example about [facility], structuring fun time like taking a train running to [place], and financial decisions can make anxiety climb to 8-9/10. Denies feeling hopeless, helpless, worthless or guilty. Denies active suicidal ideation. Has mild passive suicidal ideation. Gives a safety promise for here. Denies homicidal ideation. Denies auditory and visual hallucinations and paranoid ideation. Reports sleep is good. Appetite is little. Energy is low. Tolerating medications well, without complaint. The patient agrees to increase Lexapro dose to 10 mg daily effective tomorrow. I discussed possible discharge tomorrow and the patient reported being afraid to face the weekend alone. Wants to follow up with Cady Alonzo APRN after discharge. Dr. Cool's consultation appreciated. Patient is hypotensive, so she is a poor candidate for propranolol. I have ordered primidone starting at 25 mg q.h.s. IMPRESSION: Slow progress. Continue present treatment plan. Monitor response to increase in Lexapro dose tomorrow. Monitor response to addition of primidone for tremor.
[2017-04-07 15:51] VITALS: BP 107/68
--- NOTE | 2017-04-07 16:21 | SOCIAL WORKER PROG NOTE PSYCH ---
Social Work Progress Note Progress Note Member Name Member ID Member Subscriber Name Subscriber ID HUSSEIN MA [id number] 1945 HUSSEIN Han RADHAAriel [id number] Pended Authorization # Client Authorization # Type of Request [id number] CONCURRENT Date of Admission/ Start of Services Requested From Submission Date 03/29/2017 04/07/2017 04/07/2017
--- NOTE | 2017-04-07 18:00 | NUR ---
PT IS CALM, COOPERATIVE WITH STAFF AND PEERS, AND COMPLIANT WITH UNIT RULES. BOTH IN AND OUT OF [place], PT IS INTERACTING WELL WITH OTHERS. MOOD IS STABLE, AFFECT APPEARS EUTHYMIC TO FULL RANGE, COMMUNICATION APPEARS ORGANIZED AND APPEARS NORMAL IN ALL RESPECTS, AND APPETITE IS NORMAL. PT DENIES SI AT THIS TIME.
[2017-04-07 20:04] VITALS: BP 110/71
--- NOTE | 2017-04-08 06:19 | NUR ---
THIS PATIENT WAS CALM, COOPERATIVE, WITH ORGANIZED THOUGHTS. PATIENT STAYING IN HER ROOM TO AVOID UNIT ACUITY. THE PATIENT SLEPT.
[2017-04-08 07:54] VITALS: BP 91/54
--- NOTE | 2017-04-08 11:38 | SOCIAL WORKER PROG NOTE PSYCH ---
Social Work Progress Note Progress Note Patient reports that she feels that she is ready for discharge today, as opposed to possibly staying for the weekend. Patient did not attend a.m. group, after having gotten up and eating breakfast, she retreated to her room. We talked about the fact that, while her intention to try IOP is a worthy thought, it is not realistic, due to avoidance of groups while she has been here. Patient has a custodial auto collision repair instructor, Dr Jayy Brunner, who knows patient well and schedules appointments frequently depending upon patient need. She will continue to see him weekly. Patient will also be seeing Cady Alonzo in our out- patient department for medication management. She has an appointment scheduled for 04-22-17. Prior to that appointment she will have an appointment with Debbi Rojas at 8 a. m. on 04-12 at 8:00 a.m. Patient mood is good. More animated since decision to be discharged. Patient denies any suicidal ideation, and says her mood is good; however she continues to verbalize life regrets. She will conyinue treatment as an out-patient. She states she will try to socialize more
[2017-04-08] MEDS ORDERED: QUETIAPINE FUMA25 M1 PO (11:58)
[2017-04-08] MEDS ORDERED: BIOTENE473 ML PO (11:58)
[2017-04-08] MEDS ORDERED: LEXAPRO10 M1 PO (11:58)
[2017-04-08] MEDS ORDERED: DIVALPROEX SOD500 M2 PO (11:58)
[2017-04-08] MEDS ORDERED: PRIMIDONE50 M1 PO (11:58)
--- NOTE | 2017-04-08 12:45 | NUR ---
Discharge Note Patient to be discharged to [facility] with f/u with private psychiatrist. The patient reports her depression has improved yet remains tearful at times when identifying ways to cope. Denies SI. Her plan is to socialize more and take walks for exercise. Meds reviewed with stress on compliance.
--- NOTE | 2017-04-08 14:26 | CP SOUTH PROGRESS NOTE PSYCH ---
Psych (Inpt) Progress Note Progress Note Include the following elements, when applicable: Involvement in the active treatment of the patient with behavioral observations of the patient and the patient's response to the treatment. Review of the ongoing treatment process in the context of the treatment plan. Indication of how multi-disciplinary staff members are carrying out the treatment plan. Plans for future interventions and recommendations for revision of the treatment plan. Liaison with other physicians/providers. Progress Note: Case and treatment plan discussed in team meeting. Staff reports that the patient has been lying low because of stimulation in the milieu. Wants to leave because it is too noisy here. Will have follow-up with Dr. Brunner and Cady Alonzo APRN. Patient seen at 12:11 PM. Affect is calm and blunted. Feels okay. Denies any change in tremor thus far. Tolerating addition of mysoline. Reports mood, all things considered, is pretty good. States she will be glad to get out of the chaos. [place] very well treated here. Rates sad mood 5/10 and anxiety 6/10. Denies feeling hopeless, helpless, worthless or guilty. Denies active and passive suicidal ideation. Denies homicidal ideation. Denies auditory and visual hallucinations and paranoid ideation. Reports sleep is pretty good. Appetite is poor. Energy is so-so. Tolerating medications well, without complaint. Feels ready and safe for discharge. IMPRESSION: Condition improved. Okay for discharge today with follow-up as above.
--- NOTE | 2017-04-08 17:49 | DISCHARGE SUMMARY REPORT-PSYCH ---
Visit Information Visit Dates/Diagnosis' Admission Date: 03/29/17 Discharge Date: 04/08/17 Reason for Admission: Severe depression and passive suicidal ideation. Psy Discharge Primary Diag: Major depression, recurrent, severe Psy Discharge Secondary Diag: Chronic familial tremor Hypothyroidism Back pain Hospital Course Significant Lab Findings: Lab ALT 37 U/L 03/29/17 1327 AST 46 U/L H 03/29/17 1327 BUN 18 mg/dL H 03/29/17 1327 Cholesterol 210 MG/DL H 03/29/17 1327 Cholesterol/HDL Ratio 3 % 03/29/17 1327 Creatinine 0.8 mg/dL 03/29/17 1327 Folate > 20.0 ng/mL H 03/29/17 1327 Free T4 1.32 ng/dL 03/29/17 1327 HDL Cholesterol 62 mg/dL H 03/29/17 1327 LDL Cholesterol, Calc 125 mg/dL 03/29/17 1327 TSH 2.200 uIU/mL 03/29/17 1327 Vitamin B12 > 1000 pg/mL H 03/29/17 1327 Hct 46.4 % 03/29/17 1327 Hgb 15.3 G/DL 03/29/17 1327 Plt Count 145 /CUMM 03/29/17 1327 WBC 9.3 /CUMM 03/29/17 1327 Valproic Acid 65.8 ug/mL 04/05/17 0610 Valproic Acid 56.3 ug/mL 04/07/17 0628 Hyaline Casts FEW H 03/29/17 1313 Ur Epithelial Cells FEW 03/29/17 1313 Urinalysis MOD H 03/29/17 1313 Urine Bacteria FEW H 03/29/17 1313 Urine Clarity HAZY H 03/29/17 1313 Urine Mucus MANY H 03/29/17 1313 Urine Protein TRACE MG/DL H 03/29/17 1313 Urine WBC 1-3 /HPF H 03/29/17 1313 URINE CULTURE Final 04/03/17-1127 NO GROWTH AFTER 2 DAYS Course Complications: None. Consultations: Patient was seen by Dr. Petey Stephens for admission H&P. Please refer to his note for more information. Patient was seen by Dr. Maynor Cool of neurology for chronic familial tremor. While propranol is the preferred treatment, patient has low bp and depression, so primodone was started instead. Allergies: Coded Allergies: citalopram (From CELEXA) (UNKNOWN PER PT 03/29/17) fluvoxamine (From LUVOX) (UNKNOWN PER PT 03/29/17) sertraline (From ZOLOFT) (UNKNOWN PER PT 03/29/17) Hospital Course/TX Response: The patient was monitored on the unit for safety and mood disorder. She participated in multi-modal treatments on the unit. Seroquel and Depakote doses were reduced. Lexapro was started and titrated up to 10 mg daily. Topamax and levothyroxine were continued. Patient is now on primodone 25 mg qhs for chronic familial tremor and dose should be tapered up over time (please see Dr. Cool's consult note). Mood and affect have improved. Suicidal ideation has remitted. Progress note from date of discharge, 04/08/17: Case and treatment plan discussed in team meeting. Staff reports that the patient has been lying low because of stimulation in the milieu. Wants to leave because it is too noisy here. Will have follow-up with Dr. Brunner and Yusuf Alonzo APRN. Patient seen at 12:11 PM. Affect is calm and blunted. Feels okay. Denies any change in tremor thus far. Tolerating addition of mysoline. Reports mood, all things considered, is pretty good. States she will be glad to get out of the chaos. [place] very well treated here. Rates sad mood 5/10 and anxiety 6/10. Denies feeling hopeless, helpless, worthless or guilty. Denies active and passive suicidal ideation. Denies homicidal ideation. Denies auditory and visual hallucinations and paranoid ideation. Reports sleep is pretty good. Appetite is poor. Energy is so-so. Tolerating medications well, without complaint. Feels ready and safe for discharge. IMPRESSION: Condition improved. Okay for discharge today with follow-up as above. Discharge HBIPS - Tobacco Use Treatment Offered Post DC Medications Offered: Not Applicable Post DC Tobacco Treatment Plan: Not Applicable - EtOH/Drug Use D/O Treatment Offered Post DC Medications Offered: NA-No EtOH/Drug Use D/O Post DC EtOH/SubAbuse [place] Plan: NA-No EtOH/Drug Use D/O Metabolic Screening - Screen if on a Neuroleptic Medication - Metabolic screening should include: - Blood Pressure, BMI, Glucose or Hgb A1c, & a - Lipid profile from within the past 365 days. Metabolic Screening () Not Applicable, patient not on a neuroleptic. OR () Patient on a neuroleptic(s) . Enter below results for Glucose or Hemoglobin A1C, and lipid panel if obtained during the last 365 days. BMI: Blood Pressure: 91/54 Laboratory Results (If applicable): [x] Lab Cholesterol 210 MG/DL H 03/29/17 1327 Cholesterol/HDL Ratio 3 % 03/29/17 1327 Glucose 78 mg/dL 03/29/17 1327 HDL Cholesterol 62 mg/dL H 03/29/17 1327 LDL Cholesterol, Calc 125 mg/dL 03/29/17 1327 Triglycerides 116 mg/dL 03/29/17 1327 Discharge Instructions General Discharge Information Discharge Medications: Discharge Medications- (Dose, route, freq, indication): START taking these NEW Home Medications: Primidone Dose: ORAL, AT BEDTIME for Qty: 7 Called in to (Primidone) 50 MG 25 Milligram tremor Refills: 0 Pharm 1 TABLET Divalproex Sodium Dose: ORAL, 2000 for mood Qty: 14 Called in to (Divalproex Sodium) 500 Milligram stabilization Refills: 0 Pharm 1 500 MG TABLET. Escitalopram Oxalate Dose: ORAL, 1000 for depression Qty: 14 Called in to (Lexapro) 10 MG 10 Milligram Refills: 0 Pharm 1 TABLET Quetiapine Fumarate Dose: ORAL, 2200 for Qty: 14 Called in to (Quetiapine 25 Milligram sleep/moods Refills: 0 Pharm 1 Fumarate) 25 MG TABLET Saliva Substitute Dose: ORAL, EVERY 2 HOURS Qty: 1 Combo No.9 (Biotene) 2 [place] NEEDED as needed for dry Refills: 0 473 ML MOUTHWASH mouth CONTINUE taking these Home Medications: Levothyroxine Sodium Dose: ORAL, DAILY for THYROID (Levothyroxine Sodium) 1 Tablet 50 MCG TABLET Topiramate (Topiramate) Dose: ORAL, TAKE AT BEDTIME 50 MG TABLET 1 Tablet for MOOD Multivitamin (Multi-Day Dose: ORAL, DAILY for Vitamins) 1 EACH TABLET 1 Tablet SUPPLEMENT STOP taking these DISCONTINUED Home Medications: Quetiapine Fumarate Dose: ORAL, TAKE AT BEDTIME for MENTAL (Quetiapine Fumarate) 25 MG 2 Tablet HEALTH TABLET Reason Stopped: Changed Dose Divalproex Sodium (Divalproex Dose: ORAL, Every night for MOOD Sodium ER) 250 MG TAB.ER.24H 1 Tablet STABILIZER Reason Stopped: Changed Dose Divalproex Sodium (Divalproex Dose: ORAL, Every night for MOOD Sodium) 500 MG TABLET.DR 1 Tablet STABILIZER Reason Stopped: Changed to different med Diphenhydramine HCl Dose: ORAL, As Directed for UNKNOWN (Diphenhydramine HCl) 50 MG 1 Capsule Reason Stopped: Not needed CAPSULE Alprazolam (Alprazolam) 2 MG Dose: ORAL, TAKE AT BEDTIME for TABLET 1 Tablet ANXIETY/SLEEP Reason Stopped: Changed to different med Vitamin B Complex (Super B-50 Dose: ORAL, DAILY for SUPPLEMENT Complex) 1 EACH CAPSULE 1 Capsule Reason Stopped: Changed to different med Calcium/Magnesium/Zinc Dose: ORAL, DAILY for SUPPLEMENT (Msnryhv-Opbbdudmr-Dini Tab) 1 1 Tablet Reason Stopped: Changed to EACH TABLET different med [place]-3 Fatty Acids ([place]-3) Dose: ORAL, DAILY for SUPPLEMENT (Unknown Strength) CAPSULE 2 Capsule Reason Stopped: Not needed 1: [facility] [id number], [address] [place], [place] [id number] Multiple Neuroleptics: ([x]) Not Applicable OR Document below three failed attempts at monotherapy, or a plan to taper to monotherapy, or augmentation of Clozapine. () Patient's Diet: Regular. Patient's Activity: No restrictions. DC Disposition: Patient is returning to home. Increased socialization is encouraged. Recommendations: See neurologist, Dr. Maynor Cool, for chronic familial tremor. Referred To: Yusuf Alonzo APRN at [facility] 04/12/17 at 8 a.m. Jayy Brunner, PhD, patient to arrange. Dr. Maynor Cool, neurologist, 05/12/17 at 2:15 p.m. Copies To: CHAZ LAST,MAYNOR S; AVIS RIVAS,YUSUF
--- NOTE | 2017-04-12 19:38 | IP INCIDENTAL NOTE PSYCH ---
Incidental Note Notation: Patient reportedly will not have enough Lexapro and Primidone to last until appointment with Cady Alonzo on 04/22/17. Rx's called to [facility] [phone] for: Primidone 50 mg, #7, 1/2 po qhs, NR. Lexapro 10 mg, #14, 1 po daily, NR.
== END 2017-04-08 13:25 | DRG 885 ==
LOC: ERH 12:52 → ERHI 20:37 → CP SOUTH 20:37 → ENTRNSPT 20:39 → EDBEDREQ 20:47 → CP SOUTH 20:52 → CMPTRNSPT 20:57 → CP SOUTH 21:02 → ENPENDDIS 04-08 13:30
PROVIDERS: Emergency Medicine; ADMIT Psychiatry & Neurology Psychiatry
DX: F33.2 Major depressive disorder, recurrent severe without psychotic features (principal); E03.9 Hypothyroidism, unspecified; G25.0 Essential tremor; M54.9 Dorsalgia, unspecified
CPT/HCPCS: 36415; 80307; 81001; 87086; G0480; J3490